=== PATIENT | male | born 1985 | race Caucasian/White ===

== ENCOUNTER 2020-12-14 14:21 | Emergency (ER) | payer MEDICAID ==
[~2020-12-14] VITALS: Ht 188 cm; Wt 81.8 kg
[~2020-12-14 14:21] MED LIST: BUSP15TA3 PO; [UNRECOGNIZED DRUG - CODE] PO
[2020-12-14] MEDS ORDERED: CefTRIAXone SODIUM 1 GM/VIAL IM ONE (16:00)
[2020-12-14] MEDS ORDERED: LIDOCAINE/PF 1% 2 ML VIAL IM ONE (16:00)
[2020-12-14 16:42] LABS: COVID AG,FIA SOURCE NASOPHARYNGEAL
[2020-12-14 16:49] LABS: APPEARANCE,URINE CLEAR (CLEAR); BILIRUBIN,URINE NEGATIVE (NEGATIVE); GLUCOSE, URINE (UA) NEGATIVE (NEGATIVE); KETONES,URINE NEGATIVE (NEGATIVE); LEUKOCYTE ESTERASE ,URINE NEGATIVE (NEGATIVE); NITRATE,URINE NEGATIVE (NEGATIVE); OCCULT BLOOD,URINE NEGATIVE (NEGATIVE); PH,URINE 6.5 (5.0-8.0); PROTEIN,URINE NEGATIVE (NEGATIVE); UROBILINOGEN,URINE 0.2 mg/dL (<=1.0)
[2020-12-14 17:04] LABS: RAPID GROUP A STREP NEGATIVE (NEGATIVE)
[2020-12-14 17:16] VITALS: BP 114/64
== END 2020-12-14 17:47 | disposition home or self-care (01) ==
LOC: EMS 14:24
DX: J02.9 Acute pharyngitis, unspecified (principal); N34.2 Other urethritis; F41.9 Anxiety disorder, unspecified; F32.9 Major depressive disorder, single episode, unspecified; Z20.822 Contact with and (suspected) exposure to COVID-19
CPT/HCPCS: 81003; 87426; 87430; 87491; 87591; 96372; 99283; J0696; J3490; U0003

== ENCOUNTER 2021-12-18 02:44 | Emergency (ER) | payer MEDICAID ==
[~2021-12-18] VITALS: Ht 185.4 cm; Wt 72.7 kg
[2021-12-18] MEDS ORDERED: IBUPROFEN 600 MG TABLET PO ONE (05:00)
[2021-12-18] MEDS ORDERED: DOXYCYCLINE HYCLATE 100 MG TABLET PO ONE (05:00)
[2021-12-18] MEDS ORDERED: ACETAMINOPHEN 500 MG TABLET PO ONE (05:00)
[2021-12-18] MEDS ORDERED: CEPHALEXIN MONOHYDRATE 500 MG CAPSULE PO ONE (05:00)
[2021-12-18] MEDS ORDERED: MUPIROCIN CALCIUM 2% 22 GM OINTMENT NASAL ONE (05:00)
[2021-12-18] MEDS ORDERED: IBUP-1554 PO (05:04)
[2021-12-18] MEDS ORDERED: MUPI1OIN5 TP (05:04)
[2021-12-18] MEDS ORDERED: CEPH-558 PO (05:04)
[2021-12-18] MEDS ORDERED: DOXY-354 PO (05:04)
[2021-12-18 06:04] VITALS: BP 125/77
== END 2021-12-18 06:26 | disposition home or self-care (01) ==
LOC: EMS 03:18
DX: S00.33XA Contusion of nose, initial encounter (principal); L01.00 Impetigo, unspecified; M89.8X9 Other specified disorders of bone, unspecified site; F14.90 Cocaine use, unspecified, uncomplicated; F12.90 Cannabis use, unspecified, uncomplicated; F15.90 Other stimulant use, unspecified, uncomplicated; W22.8XXA Striking against or struck by other objects, initial encounter; Y93.89 Activity, other specified; Y92.89 Other specified places as the place of occurrence of the external cause; Y99.8 Other external cause status
CPT/HCPCS: 99284; Z7502; Z7610